=== PATIENT | male | born 1975 | race Two or more races ===

== ENCOUNTER 2016-09-24 17:16 | Emergency (ER) | payer SELFPAY ==
[~2016-09-24] VITALS: Ht 162.6 cm; Wt 83.0 kg
[2016-09-24 18:13] LABS: HEMATOCRIT 48.4 % (38.0-50.0); MCH 30.8 PG (29.0-34.0); MCHC 36.4 G/DL (30.0-36.0); MCV 84.8 FL (86-99); MEAN PLAT.VOLUME 9.7 uM^3 (9.0-12.4); PLATELET COUNT 266 K/uL (156-360); RBC DIS.WIDTH-CV 12.9 % (11.8-14.6); RBC DIS.WIDTH-SD 39.9 % (39-53); RED BLOOD COUNT 5.71 M/uL (4.00-5.50); WHITE BLOOD COUNT 8.5 K/uL (4.1-10.2)
[2016-09-24 18:22] LABS: CHLORIDE 104 mEq/L (99-109); SODIUM 138 mEq/L (136-147)
[2016-09-24 18:24] LABS: GLUCOSE 84 mg/dL (70-99)
[2016-09-24 18:25] LABS: ANION GAP 11 MEQ/L (2-14)
[2016-09-24 18:29] LABS: UREA NITROGEN (BUN) 11 mg/dL (9-23)
[2016-09-24 18:37] LABS: GFR ESTIMATE (CALCULATED) > 59 mL/min/
[2016-09-24 21:51] VITALS: BP 118/94
== END 2016-09-24 21:52 | disposition home or self-care (01) ==
LOC: EME 17:16
DX: H11.002 Unspecified pterygium of left eye (principal); G43.909 Migraine, unspecified, not intractable, without status migrainosus
CPT/HCPCS: 70450; 71020; 80048; 85027; 93005; 99281; 99284; J1885; J7030